=== PATIENT | female | born 1995 | race American Indian/Alaskan Native ===

== ENCOUNTER 2016-11-24 07:02 | Day surgery (SDC) | payer MEDICAID ==
[2016-11-24] MEDS ORDERED: ceFAZolin 2 GM in NACL 0.9% 100 ML IV ONE (07:31)
[2016-11-24] MEDS ORDERED: MARCAINE 0.25% INFILTRATI ONE (07:52)
[2016-11-24] MEDS ORDERED: TRANSDERM-SCOP TD ONE (08:00)
[2016-11-24] MEDS ORDERED: ANCEF/STERILE WATER 2 GM/20 ML 2 GM/20 ML SYRINGE IV NR (08:00)
--- NOTE | 2016-11-24 08:16 | Anesthesia Consultation ---
Anesthesia Consult and Med Hx Date of service: 11/24/16 - Airway Anesthetic Teeth Evaluation: Good ROM Head & Neck: Adequate Mental/Hyoid Distance: Adequate Mallampati Class: Class II Intubation Access Assessment: Probably Good - Pulmonary Exam CTA: Yes - Cardiac Exam Cardiac Exam: RRR - Pre-Operative Health Status ASA Pre-Surgery Classification: ASA2, ASA3 Proposed Anesthetic Plan: General (no previous anesthesia problems) - Pulmonary Hx Asthma: Yes (last episode a year ago) Hx Sleep Apnea: Yes (resolved after T&A removal) - Cardiovascular System Hx Heart Murmur: Yes (no hx of problem due to it) - Central Nervous System 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
--- NOTE | 2016-11-24 08:16 | Anesthesia Day of Surgery ---
Anesthesia Day of Surgery - Day of Surgery Patient Examined: Yes Patient H&P Reviewed: Yes Patient is NPO: Yes
[2016-11-24] MEDS ORDERED: LACTATED RINGERS 1,000 ML IV SCH (08:19)
[2016-11-24] MEDS ORDERED: VERSED IV NR (08:19)
[2016-11-24] MEDS ORDERED: PEPCID IV NR (08:30)
[2016-11-24] MEDS ORDERED: ZOFRAN ONE (08:30)
[2016-11-24] MEDS ORDERED: NACL BACTERIOSTATIC INFILTRATI ONE (08:30)
[2016-11-24] MEDS ORDERED: DECADRON ONE (08:30)
[2016-11-24] MEDS ORDERED: LEVAQUIN 500MG/100ML 500 MG/100 ML BAG IV NR (08:30)
[2016-11-24] MEDS ORDERED: SUBLIMAZE ONE (09:44)
[2016-11-24] MEDS ORDERED: DIPRIVAN 10 MG/ML IV ONE (09:45)
[2016-11-24] MEDS ORDERED: XYLOCAINE MPF 2% ONE (09:46)
[2016-11-24] MEDS ORDERED: ZEMURON IV ONE (09:46)
[2016-11-24] MEDS ORDERED: MARCAINE-EPI/PF 0.5%-1:200,000 INFILTRATI ONE ×2 (11:11→12:01)
[2016-11-24] MEDS ORDERED: XYLOCAINE 1% 20 mL ONE (11:11)
[2016-11-24] MEDS ORDERED: XYLOCAINE 1% 20 mL INFILTRATI ONE (11:46)
[2016-11-24] MEDS ORDERED: MARCAINE-EPI/PF 0.25%-1:200,000 INFILTRATI ONE (11:47)
[2016-11-24] MEDS ORDERED: DILAUDID IV PRN (12:03)
[2016-11-24] MEDS ORDERED: TORADOL IV PRN ×2 (12:12→12:26)
--- NOTE | 2016-11-24 12:12 | Post Anesthesia Evaluation ---
- Post Anesthesia Evaluation Patient Participated: Yes Airway Patent: Yes Stable Respiratory Function: Yes Nausea/Vomiting: No Temp > 96.8F: Yes Pain Manageable: Yes Adequeate Hydration: Yes Anesthesia Complications: No Block Receding Appropriately: Not Applicable Patient on Ventilator: No
--- NOTE | 2016-11-24 12:13 | Discharge Summary ---
Providers - Providers Date of discharge: 11/24/16 Attending physician: ARPIT VELASCO Primary care physician: ALICIA DOMINGUEZ Hospitalization Condition: Good Procedures: primary umbilical hernia repair Hospital course: uncomplicated umbilicial hernia repair. Disposition: DC-01 TO HOME OR SELFCARE Core Measure Documentation - Palliative Care Palliative Care/ Comfort Measures: Not Applicable - Core Measures Any of the following diagnoses?: none Exam - Physical Exam Narrative exam: unchanged from pre-op with the exception of an umbilical dressing and to 5mm trocar sits laterally. - Constitutional Vitals: Temp Pulse Resp BP Pulse Ox 98.4 F 72 18 102/65 98 11/24/16 08:12 11/24/16 08:12 11/24/16 08:12 11/24/16 08:12 11/24/16 08:12 Plan Activity: advance as tolerated Diet: regular Wound: keep clean and dry, other (remove umbilical dressin in 48 hours) Follow up with: ALICIA DOMINGUEZ MD [Primary Care Provider] - 7 Days
[2016-11-24] MEDS: DILAUDID IV PRN ×3 (12:15→12:35)
--- NOTE | 2016-11-24 12:23 | Operative Report ---
Operative Report Operative Report: Operative Report DATE OF PROCEDURE: 11/24/16 PREOPERATIVE DIAGNOSES: umbilical hernia POSTOPERATIVE DIAGNOSES: 1.same as pre-op SURGEON: Darek Carrion M.D. PACKAGING OPERATOR: Nemesio Humphrey CSA PROCEDURE: 1.primary repair of umbilical hernia ANESTHESIA: General. ESTIMATED BLOOD LOSS: minimal. COMPLICATIONS: None. SPECIMEN:none FINDINGS: 1. <2cm umbilical hernia INDICATION FOR PROCEDURE: Patient is a 21-year-old female with a umbilical hernia and sickle cell disease. She is here today for repair. PROCEDURE IN DETAIL: After consent was reviewed, patient was taken back to the operating room, where patient was placed supine on the bed with both arms out. The patient's legs were doubly strapped to the bed. Patient had a foot board in place. Patient had a body warmer placed by anesthesia. Patient was then prepped and draped in normal sterile surgical fashion. After a time-out was called, I made a stab incision in the left subcostal area and placed a Veress needle through this incision and insufflated the abdomen to 15 mmHg pressure. Using optiview technique I placed a 5mm trocar in the RUQ. There was no gross injury to an intra-abdominal structures. There was noted to be a <2cm hernia defect at the umbilicus with a tongue of adhesed omentum. A 5mm trocar was placed left upper quadrant and using the Ligasure device the omental adhesion was taken down. Due to the small size of the hernia it was decided to close primarily. Also not placing mesh would be less painful for the patient which is important because she has a history of sickle cell and i want to decrease the chance of inducing a pain crisis. A vertical incision was made midline through the umbilical skin. The fascial edges were easily approximated. Using #1 PDS the umbilical hernia defect was close with two running sutures. The camera was placed back into the abdominal cavity and verified good closure of the defect. The abdomen was desuflated and the trocars removed. The skin incisions were closed with 4-O monocryl. A fluff gauze and tegaderm were placed over the umbilicus, and dermabond on the incision sites. . Patient tolerated the procedure well and was transferred to recovery room in good and stable condition.
[2016-11-24] MEDS ORDERED: TORADOL IV ONE (12:28)
[2016-11-24] MEDS ORDERED: PERCOCET 5/325 PO PRN (12:36)
[2016-11-24] MEDS ORDERED: MIRALAX 3350 PO SCH (13:00)
[2016-11-24 14:25] VITALS: BP 111/59
[2016-11-25] MEDS ORDERED: FOLVITE PO SCH (10:00)
== END 2016-11-24 14:25 | disposition home or self-care (01) ==
LOC: OR 07:02
PROVIDERS: ATTEND Surgery
DX: K42.9 Umbilical hernia without obstruction or gangrene (principal); K66.0 Peritoneal adhesions (postprocedural) (postinfection); J45.909 Unspecified asthma, uncomplicated; Z86.73 Personal history of transient ischemic attack (TIA), and cerebral infarction without residual deficits; Z72.89 Other problems related to lifestyle; Z90.49 Acquired absence of other specified parts of digestive tract; Z98.890 Other specified postprocedural states; Z91.010 Allergy to peanuts
CPT/HCPCS: 49585; 81025; J1100; J1170; J1885; J1956; J2250; J2405; J2704; J3010; J7120